=== PATIENT | male | born 1960 | race African-American/Black ===

== ENCOUNTER 2024-03-16 16:25 | Emergency (ER) | payer MEDICAID ==
[~2024-03-16] VITALS: Ht 188 cm; Wt 70.0 kg
[2024-03-16 16:27] VITALS: PULSE 94
[2024-03-16 16:28] VITALS: BP 109/79; RESP 18; TEMP 98.5; O2SAT 100
[2024-03-16] MEDS ORDERED: IBUP-2029 MT (18:18)
[2024-03-16] MEDS ORDERED: CYCL10TA21 MT (18:18)
== END 2024-03-16 18:21 | disposition home or self-care (01) ==
LOC: ER 16:38
DX: M54.50 Low back pain, unspecified (principal)
CPT/HCPCS: 99281; 99283